=== PATIENT | female | born 1955 | race American Indian/Alaskan Native ===

== ENCOUNTER 2021-04-23 09:08 | Emergency (ER) | payer MEDICARE ==
[2021-04-23] MEDS ORDERED: diphenhydrAMINE 50 MG/ML VIAL IV STA (09:44)
[2021-04-23] MEDS ORDERED: SODIUM CHLORIDE 0.9% 1000 ML 1,000 ML IV ONE (09:45)
[2021-04-23] MEDS ORDERED: EPINEPHrine/PF 1 MG/1 ML INJ SUB-Q ONE (09:45)
[2021-04-23] MEDS ORDERED: dexAMETHasone 4 MG/ML VIAL IV ONE (09:45)
[2021-04-23] MEDS ORDERED: FAMOTIDINE 20 MG/2 ML INJ IV ONE (09:45)
[2021-04-23] MEDS ORDERED: dexAMETHasone 20 MG/5 ML VIAL IV ONE (09:51)
[2021-04-23 12:09] VITALS: BP 144/80
== END 2021-04-23 13:23 | disposition home or self-care (01) ==
LOC: ED 09:08
DX: T78.3XXA Angioneurotic edema, initial encounter (principal); I10 Essential (primary) hypertension; J45.909 Unspecified asthma, uncomplicated; Z79.899 Other long term (current) drug therapy; X58.XXXA Exposure to other specified factors, initial encounter; Y93.89 Activity, other specified; Y92.89 Other specified places as the place of occurrence of the external cause; Y99.8 Other external cause status
CPT/HCPCS: 93005; 99283; J0171; J1100; J1200; J7030

== ENCOUNTER 2022-04-05 13:12 | Emergency (ER) | payer MEDICARE | END 2022-04-05 19:00 | disposition left against medical advice (07) | LOC: ED 13:12 | DX: Z04.1 Encounter for examination and observation following transport accident (principal); Z53.21 Procedure and treatment not carried out due to patient leaving prior to being seen by health care provider ==

== ENCOUNTER 2022-06-23 04:17 | Emergency (ER) | payer MEDICARE ==
[2022-06-23 06:37] VITALS: BP 176/91
== END 2022-06-23 11:26 | disposition left against medical advice (07) ==
LOC: ED 04:17
DX: K14.0 Glossitis (principal); Z53.21 Procedure and treatment not carried out due to patient leaving prior to being seen by health care provider